=== PATIENT | male | born 2000 | race Asian ===

== ENCOUNTER 2019-03-08 05:47 | Day surgery (SDC) | payer OTHER ==
[~2019-03-08 05:47] MED LIST: Buffered Lidocaine 1% SYRIN* 1 ML/SYRINGE INTRADERM ONE
[2019-03-08] MEDS ORDERED: Lactated Ringers 1000 ML Bag* 1,000 ML IV SCH (06:00)
[2019-03-08] MEDS ORDERED: Dexamethasone IV* 4 MG/ML 1 ML (4 MG) IV SLOW PU ONE (06:00)
[2019-03-08] MEDS ORDERED: ceFAZolin 2 GM in NS PREMIX(*) 2 GM/100 ML BAG IVPB ONE (06:18)
[2019-03-08] MEDS ORDERED: Dexamethasone IV* 4 MG/ML 1 ML (4 MG) ONE (06:18)
[2019-03-08] MEDS ORDERED: Buffered Lidocaine 1% SYRIN* 1 ML/SYRINGE INTRADERM ONE (06:18)
[2019-03-08] MEDS ORDERED: Midazolam* 1 MG/ML 5 ML VIAL (5 MG) ONE (07:13)
[2019-03-08] MEDS ORDERED: Bupivacaine 0.25% EPI 200,000* 30 ML SDV ONE (07:18)
[2019-03-08] MEDS ORDERED: Naloxone* 0.4 MG/ML 1 ML VIAL IV PRN (07:26)
[2019-03-08] MEDS ORDERED: HYDROmorphone INJ1* 1 MG/ML SYRINGE IV PRN (07:26)
[2019-03-08] MEDS ORDERED: Ketorolac INJ* 30 MG/ML 1 ML VIAL IV PRN (07:26)
[2019-03-08] MEDS ORDERED: Acetaminophen TAB* 325 MG PO PRN (07:26)
[2019-03-08] MEDS ORDERED: DiMENhydriNATE IV* 50 MG/ML VIAL IV PUSH PRN (07:26)
[2019-03-08] MEDS ORDERED: Rocuronium* 10 MG/ML VIAL ONE (07:37)
[2019-03-08] MEDS ORDERED: fentaNYL* 50 MCG/ML 5 ML VIAL (250 MCG VIAL) ONE (07:37)
[2019-03-08] MEDS ORDERED: Propofol* 10 MG/ML 20 ML BTL ONE (07:51)
[2019-03-08] MEDS ORDERED: Lidocaine 2% PF * 5 ML VIAL ONE (07:51)
[2019-03-08] MEDS ORDERED: Ondansetron INJ* 2 MG/ML VIAL ONE (09:46)
[2019-03-08] MEDS ORDERED: oxyCODONE/Acetamin 5/325 MG* TAB ONE ×2 (10:48→12:52)
[2019-03-08] MEDS: oxyCODONE/Acetamin 5/325 MG* TAB PO PRN ×2 (10:49→13:05)
[2019-03-08] MEDS ORDERED: fentaNYL* 50 MCG/ML 2 ML VIAL (100 MCG VIAL) ONE (11:37)
[2019-03-08] MEDS: fentaNYL* 50 MCG/ML 2 ML VIAL (100 MCG VIAL) IV PRN ×2 (11:38→12:16)
[2019-03-08 13:24] VITALS: BP 136/75
--- NOTE | 2019-03-08 16:45 | OP ---
DATE OF OPERATION: 03/08/19 [facility] DATE OF : 89 SURGEON: Tyler Bae MD [employer] MECH[employer]IC: Staci Howell NP ANESTHESIOLOGIST: Dr. Alicea. ANESTHESIA: General. PRE-OP DIAGNOSIS: Right inguinal hernia. POST-OP DIAGNOSIS: Right indirect inguinal hernia. OPERATIVE PROCEDURE: Total extraperitoneal repair of right inguinal hernia with mesh, laparoscopy. ESTIMATED BLOOD LOSS: Minimal. IV FLUIDS: 1.4 L of crystalloid. SPECIMENS: None. WOUND CLASSIFICATION: 1. COMPLICATIONS: None. DRAINS: None. FINDINGS: The patient has had a large indirect inguinal hernia sac extending down in the upper portion of the scrotum, which was reduced. A rent was made in the peritoneum, which was closed with both an Endoloop as well as Hemoclips. No direct hernia was noted. At the completion of the case, peritoneoscopy was performed to assure complete coverage of the peritoneum over the placed mesh. DESCRIPTION OF PROCEDURE: Written informed consent was obtained, the right groin was marked with indelible ink and preoperative antibiotics were administered. The patient was taken to the operating room, placed in the supine position. Sequential compression devices were placed on the lower extremity. General anesthesia was administered. Lan catheter was inserted. The abdomen and both groins were prepped and draped in usual sterile fashion. Time-out verification was completed. 1% lidocaine mixed with 0.25% Marcaine was infiltrated just below the umbilicus in the midline and slightly to the right and a transverse incision was made, carried down through the anterior rectus sheath which was divided. The right rectus muscle was retracted laterally to expose the posterior sheath and the preperitoneal space was then developed inferiorly and the Spacemaker balloon was passed by palpation down to the pubic tubercle. The balloon was inflated with approximately 12 to 15 pumps of the grenade under direct vision of the camera to develop the extraperitoneal space. Next, a 12-Spanish blunt port was inserted into the extra-peritoneum and the space was insufflated to 12 mmHg. Under direct vision, two 5-mm ports were placed inferiorly along the midline under direct vision. Dissection commenced at the midline. We identified the pubic tubercle and the Mik ligament on the left. Mik ligament on the right was identified. There was peritoneum ont the right side that was adherent to the anterior abdominal wall more laterally and this was bluntly taken down to expose the anterior abdominal wall as well as the iliopubic tract extending out to the iliac crest without difficulty. We subsequently then worked more medially and identified the epigastric vessels , which were protected from injury throughout. We then were able to identify the peritoneal reflection laterally and moving medially, we identified a peritoneal sac extending down into the internal ring. This was carefully reduced with some difficulty as the hernia did extend down into the scrotum and the sac was quite redundant. We were able to identify the spermatic cord and its structures as well as the vas deferens and these structures were protected from injury throughout. I did make a rent in the peritoneum while we were working to mobilize it from the scrotum and this was closed with a combination of 5-mm clips as well as a 0- Vicryl Endoloop. We were able to successfully and completely reduced the peritoneum from the internal ring and reflected back onto the posterior abdominal wall. I noted no evidence of a direct space hernia. Next, a 10 cm x 15 cm self-gripping mesh was trimmed slightly and edges were rounded. It was folded in my usual fashion into fourths and soaked in saline and then passed into the extraperitoneal space. This was then opened to cover the direct and indirect spaces as well as generous overlap of the anterior abdominal wall as well as the posterior retroperitoneum with care to make sure that our peritoneal reflection was more superior to the edge of the mesh. With this in mind and the mesh showing no evidence of wrinkling and with good coverage laterally out to the iliac crest as well as crossing the midline, we were able to obtain assured hemostasis and the abdomen and the extraperitoneal space were desufflated under direct vision with several instruments holding the mesh in place as the peritoneum covered it. We then did enter the peritoneal cavity through the umbilical incision and the 12- mm blunt port was inserted. We visualized the mesh in place and the area where the peritoneum had been repaired. There was a small 1 cm opening in the peritoneum, which I closed with 2 separate Hemoclips to completely seal the peritoneum overlying the mesh in the extraperitoneal space. A third 5-mm port was placed in the left lateral abdominal wall for assistance in placing the Hemoclip along the peritoneum. All ports were removed under direct vision of the camera. The umbilical fascia was closed with interrupted 0-Vicryl suture. The skin at all incisions was approximated with subcuticular 4-0 Vicryl suture. Steri-Strips were applied. The patient tolerated the procedure well and was taken to the recovery room in stable condition. [id number] #: [id number] MTDD
== END 2019-03-08 13:20 | disposition home or self-care (01) ==
LOC: OR 05:47
PROVIDERS: ATTEND Surgery
DX: K40.90 Unilateral inguinal hernia, without obstruction or gangrene, not specified as recurrent (principal)
CPT/HCPCS: A9270-GY; C1781; J0690; J1100; J2250; J2405; J2704; J3010